=== PATIENT | female | born 1930 | race Caucasian/White ===

== ENCOUNTER → 2016-09-08 | Outpatient (CLI) | payer MEDICARE, OTHER ==
[~2016-09-08] MED LIST: ACET-2321 PO; ASPI-1115 PO; BUME2TAB17 PO; GABA-190 PO; I-CAP PO; LEVO75TA58 PO; METO25TA27 PO; MULT-806 PO; OMEP20CA81 PO; OXYC-544 PO; POTA10TA18 PO
== END ==
LOC: WC.BC 10:49
DX: Z12.31 Encounter for screening mammogram for malignant neoplasm of breast (principal); N64.59 Other signs and symptoms in breast; C50.912 Malignant neoplasm of unspecified site of left female breast
CPT/HCPCS: 77063; G0202